=== PATIENT | female | born 1955 | race Caucasian/White ===

== ENCOUNTER → 2017-08-07 | Outpatient (CLI) | payer OTHER ==
--- NOTE | 2017-08-09 07:37 | MM ---
Reason for exam: screening (asymptomatic). Last mammogram was performed 1 year and 2 months ago. History: Patient is postmenopausal. Physical Findings: A clinical breast exam by your physician is recommended on an annual basis and results should be correlated with mammographic findings. MG Screening Mammo w CAD Bilateral CC and MLO view(s) were taken. Prior study comparison: June 13, 2016, bilateral MG screening mammo w CAD. June 09, 2015, bilateral MG screening mammo w CAD. There are scattered fibroglandular densities. Focal asymmetry in the left breast is stable. No significant changes when compared with prior studies. ASSESSMENT: Benign, BI-RAD 2 RECOMMENDATION: Routine screening mammogram of both breasts in 1 year.
== END ==
LOC: RADMAMWWP 07:42
PROVIDERS: ATTEND Family Medicine
DX: Z12.31 Encounter for screening mammogram for malignant neoplasm of breast (principal)

== ENCOUNTER → 2018-10-25 | Outpatient (CLI) | payer OTHER ==
--- NOTE | 2018-10-28 11:59 | MM ---
Reason for exam: screening (asymptomatic). Last mammogram was performed 1 year and 3 months ago. History: Patient is postmenopausal. Physical Findings: A clinical breast exam by your physician is recommended on an annual basis and results should be correlated with mammographic findings. MG Screening Mammo w CAD Bilateral CC and MLO view(s) were taken. Prior study comparison: August 07, 2017, bilateral MG screening mammo w CAD. June 13, 2016, bilateral MG screening mammo w CAD. The breast tissue is heterogeneously dense. This may lower the sensitivity of mammography. Benign calcifications in the left breast. No significant changes when compared with prior studies. ASSESSMENT: Benign, BI-RAD 2 RECOMMENDATION: Routine screening mammogram of both breasts in 1 year.
== END ==
LOC: RADMAMWWP 09:15
PROVIDERS: ATTEND Family Medicine
DX: Z12.31 Encounter for screening mammogram for malignant neoplasm of breast (principal)
CPT/HCPCS: 77067

== ENCOUNTER 2020-06-14 12:46 | Observation (INO) | payer MEDICARE ==
--- NOTE | 2020-06-14 13:17 | ED ---
Abdominal Pain HPI - General Source: patient Mode of arrival: wheelchair Limitations: no limitations <Sunita Enrique - Last Filed: 06/14/20 16:21> <Rowdy Bardales - Last Filed: 06/14/20 17:15> - General Chief Complaint: Abdominal Pain Stated Complaint: epigastric pain Time Seen by Provider: 06/14/20 13:02 - History of Present Illness Initial Comments: 65-year-old female presents today for chief complaint of vague epigastric pain ongoing for the past month worsening. Patient states that she recently was told she had worsening GERD and should epigastric pain. She states that now is progressively worsened and radiate towards her back. Patient denies fevers, admits to chills. Denies melena, or hematochezia currently. States a month ago prior to being on protonix she was experiencing dark stools but was also on pepto. patient denies vomiting chest pain or pressure, shortness of breath. She states that the pain the goes to the back is slight more left than right rather than midline. patient denies additional complaints. Upon arrival she appears well nontoxic in no acute distress. (Sunita Enrique) - Related Data Home Medications Medication Instructions Recorded Confirmed Acetaminophen Tab [Tylenol] 650 mg PO Q6H PRN 06/14/20 06/14/20 Acetaminophen/Diphenhydramine 2 tab PO HS 06/14/20 06/14/20 [Tylenol PM 500-25mg] Aspirin EC [Ecotrin Low Dose] 81 mg PO DAILY 06/14/20 06/14/20 Omeprazole 20 mg PO DAILY 06/14/20 06/14/20 Allergies Allergy/AdvReac Type Severity Reaction Status Date / Time codeine Allergy Itching Verified 06/14/20 16:09 Review of Systems ROS Other: All systems not noted in ROS Statement are negative. <Sunita Enrique - Last Filed: 06/14/20 16:21> ROS Other: All systems not noted in ROS Statement are negative. <Rowdy Bardales - Last Filed: 06/14/20 17:15> ROS Statement: Those systems with pertinent positive or pertinent negative responses have been documented in the HPI. Past Medical History Past Medical History: CVA/TIA, Osteoarthritis (OA) Additional Past Medical History / Comment(s): TIA History of Any Multi-Drug Resistant Organisms: None Reported Past Surgical History: Section Additional Past Surgical History / Comment(s): COLONOSCOPY, EGD, BRAIN SURGERY Past Anesthesia/Blood Transfusion Reactions: No Reported Reaction Past Psychological History: No Psychological Hx Reported Smoking Status: Current every day smoker Past Alcohol Use History: None Reported Past Drug Use History: None Reported - Past Family History Mother Family Medical History: No Reported History <Sunita Enrique - Last Filed: 06/14/20 16:21> General Exam Limitations: no limitations <Sunita Enrique - Last Filed: 06/14/20 16:21> - General Exam Comments Initial Comments: General: The patient is awake and alert, in no distress Eye: +3 mm pupils are equal, round and reactive to light, extra-ocular movements are intact. No nystagmus. There is normal conjunctiva bilaterally. No signs of icterus. Ears, nose, mouth and throat: There are moist mucous membranes and no oral lesions. Neck: The neck is supple, there is no tenderness or JVD. Cardiovascular: There is a regular rate and rhythm. No murmur, rub or gallop is appreciated. Respiratory: Lungs are clear to auscultation, respirations are non-labored, breath sounds are equal. No wheezes, stridor, rales, or rhonchi. Gastrointestinal: Soft, non-distended, epigastric abdominal tenderness to palpation-moderate, remaining abdomen nontender and is without masses or organomegaly noted. There is no rebound or guarding present. Musculoskeletal: Normal ROM, no tenderness. Strength 5/5. Sensation intact. Pulses equal bilaterally 2+. Neurological: A&O x 3. CN II-XII intact grossly, There are no obvious motor or sensory deficits. Coordination appears grossly intact. Speech is normal. Skin: Skin is warm and dry and no rashes or lesions are noted. Psychiatric: Cooperative, appropriate mood & affect, normal judgment. (Sunita Enrique) Course <JeffyRowdy - Last Filed: 06/14/20 17:15> Vital Signs 06/14/20 06/14/20 12:56 15:47 Temperature 97.8 F Pulse Rate 93 65 Respiratory 18 18 Rate Blood Pressure 115/71 97/66 O2 Sat by Pulse 100 96 Oximetry - Reevaluation(s) Reevaluation #1: 06/14/20 17:15 PA supervision: Patient presented with complaints of abdominal pain she was found have a pancreatic mass. She is agreed to stay. She'll be admitted with consultation. Case is discussed with Dr. Chung from EMS (Rowdy Bardales) Medical Decision Making - Lab Data Result diagrams: 06/14/20 13:33 06/14/20 13:33 <Sunita Enrique - Last Filed: 06/14/20 16:21> - Lab Data Result diagrams: 06/14/20 13:33 06/14/20 13:33 <Rowdy Bardales - Last Filed: 06/14/20 17:15> - Medical Decision Making 65yo female presenting today for cc of epigastric pain. CT reveals mass near pancreas with ductal compression. Patient laboratory studies stable aside from slightly increased lipase. patient otherwise appears well nontoxic. This concerned for pancreatic cancer patient at this time after discussing case with Dr. Jeffy Cleaning patient in the hospital for further arrangement of outpatient services and care. Patient agreeable to admission and care plan. (Sunita Enrique) - Lab Data Lab Results 06/14/20 06/14/20 06/14/20 Range/Units 13:33 13:33 13:33 WBC 7.3 (3.8-10.6) k/uL RBC 4.96 (3.80-5.40) m/uL Hgb 14.6 (11.4-16.0) gm/dL Hct 45.8 (34.0-46.0) % MCV 92.3 (80.0-100.0) fL MCH 29.4 (25.0-35.0) pg MCHC 31.9 (31.0-37.0) g/dL RDW 12.9 (11.5-15.5) % Plt Count 393 (150-450) k/uL Neutrophils % 66 % Lymphocytes % 24 % Monocytes % 4 % Eosinophils % 3 % Basophils % 1 % Neutrophils # 4.8 (1.3-7.7) k/uL Lymphocytes # 1.8 (1.0-4.8) k/uL Monocytes # 0.3 (0-1.0) k/uL Eosinophils # 0.2 (0-0.7) k/uL Basophils # 0.1 (0-0.2) k/uL Sodium 138 (137-145) mmol/L Potassium 4.5 (3.5-5.1) mmol/L Chloride 105 (98-107) mmol/L Carbon Dioxide 24 (22-30) mmol/L Anion Gap 9 mmol/L BUN 13 (7-17) mg/dL Creatinine 0.73 (0.52-1.04) mg/dL Est GFR (CKD-EPI)AfAm >90 (>60 ml/min/1.73 sqM) Est GFR (CKD-EPI)NonAf 86 (>60 ml/min/1.73 sqM) Glucose 96 (74-99) mg/dL Calcium 10.0 (8.4-10.2) mg/dL Total Bilirubin 0.5 (0.2-1.3) mg/dL AST 23 (14-36) U/L ALT 14 (4-34) U/L Alkaline Phosphatase 103 (38-126) U/L Troponin I <0.012 (0.000-0.034) ng/mL Total Protein 7.3 (6.3-8.2) g/dL Albumin 4.6 (3.5-5.0) g/dL Amylase 52 (30-110) U/L Lipase 318 H (23-300) U/L Urine Color Urine Appearance (Clear) Urine pH (5.0-8.0) Ur Specific [place] (1.001-1.035) Urine Protein (Negative) Urine Glucose (UA) (Negative) Urine Ketones (Negative) Urine Blood (Negative) Urine Nitrite (Negative) Urine Bilirubin (Negative) Urine Urobilinogen (<2.0) mg/dL Ur Leukocyte Esterase (Negative) 06/14/20 Range/Units 13:57 WBC (3.8-10.6) k/uL RBC (3.80-5.40) m/uL Hgb (11.4-16.0) gm/dL Hct (34.0-46.0) % MCV (80.0-100.0) fL MCH (25.0-35.0) pg MCHC (31.0-37.0) g/dL RDW (11.5-15.5) % Plt Count (150-450) k/uL Neutrophils % % Lymphocytes % % Monocytes % % Eosinophils % % Basophils % % Neutrophils # (1.3-7.7) k/uL Lymphocytes # (1.0-4.8) k/uL Monocytes # (0-1.0) k/uL Eosinophils # (0-0.7) k/uL Basophils # (0-0.2) k/uL Sodium (137-145) mmol/L Potassium (3.5-5.1) mmol/L Chloride (98-107) mmol/L Carbon Dioxide (22-30) mmol/L Anion Gap mmol/L BUN (7-17) mg/dL Creatinine (0.52-1.04) mg/dL Est GFR (CKD-EPI)AfAm (>60 ml/min/1.73 sqM) Est GFR (CKD-EPI)NonAf (>60 ml/min/1.73 sqM) Glucose (74-99) mg/dL Calcium (8.4-10.2) mg/dL Total Bilirubin (0.2-1.3) mg/dL AST (14-36) U/L ALT (4-34) U/L Alkaline Phosphatase (38-126) U/L Troponin I (0.000-0.034) ng/mL Total Protein (6.3-8.2) g/dL Albumin (3.5-5.0) g/dL Amylase (30-110) U/L Lipase (23-300) U/L Urine Color Yellow Urine Appearance Clear (Clear) Urine pH 6.0 (5.0-8.0) Ur Specific [place] 1.015 (1.001-1.035) Urine Protein Negative (Negative) Urine Glucose (UA) Negative (Negative) Urine Ketones Trace H (Negative) Urine Blood Negative (Negative) Urine Nitrite Negative (Negative) Urine Bilirubin Negative (Negative) Urine Urobilinogen <2.0 (<2.0) mg/dL Ur Leukocyte Esterase Negative (Negative) Disposition Is patient prescribed a controlled substance at d/c from ED?: No Time of Disposition: 16:21 Decision to Admit Reason: Admit from EC Decision Date: 06/14/20 Decision Time: 16:21 <Sunita Enrique - Last Filed: 06/14/20 16:21> <Rowdy Bardales - Last Filed: 06/14/20 17:15> Clinical Impression: Pancreatic mass, Epigastric pain Disposition: ADMITTED IP TO THIS HOSP Condition: Stable
[2020-06-14 13:56] LABS: Basophils # (A) 0.1 k/uL (0-0.2); Basophils % (A) 1 %; Eosinophils # (A) 0.2 k/uL (0-0.7); Eosinophils % (A) 3 %; HCT 45.8 % (34.0-46.0); HGB 14.6 gm/dL (11.4-16.0); Lymphocytes # (A) 1.8 k/uL (1.0-4.8); Lymphocytes % (A) 24 %; MCH 29.4 pg (25.0-35.0); MCHC 31.9 g/dL (31.0-37.0); MCV 92.3 fL (80.0-100.0); Mean Platelet Volume 7.5; Monocytes # (A) 0.3 k/uL (0-1.0); Monocytes % (A) 4 %; Neutrophils # (A) 4.8 k/uL (1.3-7.7); Neutrophils % (A) 66 %; Platelet Count 393 k/uL (150-450); RBC 4.96 m/uL (3.80-5.40); RDW 12.9 % (11.5-15.5); WBC 7.3 k/uL (3.8-10.6)
[2020-06-14 14:02] LABS: ALT 14 U/L (4-34); AST 23 U/L (14-36); African American GFR (CKD) >90 (>60 ml/min/1.73 sqM); Albumin 4.6 g/dL (3.5-5.0); Alkaline Phosphatase 103 U/L (38-126); Amylase 52 U/L (30-110); Anion Gap 9 mmol/L; Blood Urea Nitrogen 13 mg/dL (7-17); Carbon Dioxide 24 mmol/L (22-30); Chloride 105 mmol/L (98-107); Glucose 96 mg/dL (74-99); Non-African American GFR(CKD) 86 (>60 ml/min/1.73 sqM); Potassium 4.5 mmol/L (3.5-5.1); Sodium 138 mmol/L (137-145); Total Bilirubin 0.5 mg/dL (0.2-1.3); Total Protein 7.3 g/dL (6.3-8.2)
[2020-06-14 14:07] LABS: Appearance,Urine Clear (Clear); Bilirubin,Urine Negative (Negative); Blood,Urine Negative (Negative); Color,Urine Yellow; Glucose,Urine (UA) Negative (Negative); Ketones,Urine Trace (Negative); Leukocyte Esterase,Urine Negative (Negative); Nitrite,Urine Negative (Negative); Protein,Urine Negative (Negative); Specific Gravity,Urine 1.015 (1.001-1.035); Urobilinogen,Urine <2.0 mg/dL (<2.0)
--- NOTE | 2020-06-14 15:34 | CT ---
EXAMINATION TYPE: CT abdomen pelvis w con DATE OF EXAM: 06/14/2020 COMPARISON: NONE HISTORY: 65-year-old female Epigastric pain TECHNIQUE: Contiguous axial scanning of the abdomen and pelvis following administration of 100 ml Iso yanet 300 IV contrast. Delayed images through the kidneys and coronal/sagittal reconstructions perform ed. CT DLP: 613.9 mGycm Automated exposure control for dose reduction was used. FINDINGS: Heart normal size without pericardial effusion. Scattered LAD and RCA coronary artery calcifications are present. Lung bases clear without pleural effusion. Multiple hepatic cysts, largest in the left liver lobe measuring up to 7.2 cm. There is a hypervascular lesion within segment 4B of the left liver lobe measuring 1.8 cm. This equil ibrates on delayed kidney images. Flash filling hemangioma is suspected. Portal venous system is ibarra nt. Bile duct normal size measuring up to 5 mm with normal distal tapering. Gallbladder, adrenal glands, spleen appear within normal limits. Focal hypovascular area measuring 2.0 x 1.3 cm in the distal body of the pancreas with mild dilatatio n of the upstream main pancreatic duct up to 4 mm. Refer to axial image 27 and coronal image 23. There is mild edema and stranding about the proximal pancreatic body, for example, refer to coronal i mage 30. Portal venous system appears patent. The abnormal area abuts approximately 25% circumference of the p ortal venous confluence without any evidence for encasement. Bilateral renal cortical cysts measuring up to 1.6 cm. Symmetric uptake and excretion of contrast fro m the kidneys. No dilated small bowel, free fluid, or free air. No mesenteric or retroperitoneal lymphadenopathy see n. Scattered mild stool burden. Sigmoid diverticulosis. No pericolonic inflammatory change. Moderate atherosclerotic calcifications within the bilateral common iliac arteries. Bladder partially distended. Uterus is anteverted. Prominent bilateral periuterine varices and disten tion of the gonadal veins on both sides. No abnormal fluid collection in the pelvis or pelvic lymphad enopathy. Both ovaries are visualized. Bones: Hypertrophic facet arthropathy lower lumbar spine. Grade 1 anterolisthesis L5-S1. IMPRESSION: 1. ABNORMAL HYPOVASCULAR AREA AT THE DISTAL PANCREATIC BODY MEASURING 2.0 X 1.3 CM WITH MILD PROXIMAL PANCREATIC DUCTAL DILATATION. FURTHER WORKUP FOR PANCREATIC ADENOCARCINOMA ADVISED. THERE IS ABUTMEN T OF 25% OF THE CIRCUMFERENCE OF THE PORTAL VENOUS CONFLUENCE WITHOUT EVIDENCE FOR VASCULAR ENCASEMEN T OR INVASION. 2. SOME MILD EDEMA ABOUT THE PROXIMAL PANCREATIC BODY. SUPERIMPOSED MILD ACUTE INTERSTITIAL PANCREATI TIS NOT EXCLUDED. 3. A 1.8 CM HYPERVASCULAR LESION WITHIN SEGMENT IVB LEFT LIVER LOBE, SUSPECTED FLASH FILLING HEMANGIO MA. ATTENTION ON FOLLOW-UP. 4. MULTIPLE HEPATIC CYSTS, LARGEST MEASURING UP TO 7.2 CM IN THE LEFT LOBE. 5. SIGMOID DIVERTICULOSIS WITHOUT ACUTE DIVERTICULITIS. 6. BILATERAL PARAUTERINE VARICES AND DISTENDED GONADAL VEINS. FINDINGS ARE NONSPECIFIC BUT MAY BE SEE N WITH PELVIC CONGESTION SYNDROME.
[2020-06-14] MEDS ORDERED: NALOXONE 0.4 MG/ML 1 ML VIAL IV PRN (16:19)
[2020-06-14] MEDS ORDERED: SODIUM CHLORIDE 0.9% 1,000 ML IV ONE (16:19)
[2020-06-14] MEDS ORDERED: ALPRAZolam 0.5 MG TAB PO STA (16:19)
[2020-06-14] MEDS ORDERED: ACETAMINOPHEN TAB 325 MG TAB PO PRN (16:54)
[2020-06-14] MEDS ORDERED: diphenhydrAMINE 50 MG CAP PO SCH (21:00)
[2020-06-14] MEDS ORDERED: ACETAMINOPHEN TAB 500 MG TAB PO SCH (21:00)
[2020-06-14] MEDS: SODIUM CHLORIDE 0.9% 1,000 ML IV SCH (21:49)
[2020-06-15] MEDS: SODIUM CHLORIDE 0.9% 1,000 ML IV SCH ×2 (01:35→03:06)
[2020-06-15 02:09] LABS: Alpha Fetoprotein, Tumor Mkr 12.4 ng/mL (0.0-7.9)
[2020-06-15 02:38] LABS: Cancer Antigen 19-9 144.2 U/mL (0.0-34.9)
[2020-06-15 05:15] VITALS: TEMP 97.8
[2020-06-15] MEDS ORDERED: PANTOPRAZOLE 40 MG TABLET PO SCH (07:30)
[2020-06-15 11:28] LABS: African American GFR (CKD) >90 (>60 ml/min/1.73 sqM); Blood Urea Nitrogen 10 mg/dL (7-17); Non-African American GFR(CKD) >90 (>60 ml/min/1.73 sqM)
[2020-06-15 11:35] VITALS: BP 104/65; PULSE 63; RESP 17
--- NOTE | 2020-06-15 12:47 | P.DS ---
Providers Date of admission: 06/14/20 16:19 Attending physician: Elvis Underwood Consults: 06/14/20 16:19 Consult Physician Routine Consulting Provider: Manish Jackson Consult Reason/Comments: pancreatic mass Do you want consulting provider notified?: Yes, Notify in am Primary care physician: Gonzalez De León [facility] Course: As mentioned in HPI Patient Condition at Discharge: Stable Plan - Discharge Summary Discharge Rx Participant: No New Discharge Prescriptions: New ALPRAZolam [Xanax] 0.25 mg PO Q8HR PRN 7 Days #21 tab PRN Reason: Anxiety Sertraline [Zoloft] 50 mg PO DAILY #30 tab No Action Aspirin EC [Ecotrin Low Dose] 81 mg PO DAILY Acetaminophen/Diphenhydramine [Tylenol PM 500-25mg] 2 tab PO HS Acetaminophen Tab [Tylenol] 650 mg PO Q6H PRN PRN Reason: Pain Omeprazole 20 mg PO DAILY Discharge Medication List Acetaminophen Tab [Tylenol] 650 mg PO Q6H PRN 06/14/20 [History] Acetaminophen/Diphenhydramine [Tylenol PM 500-25mg] 2 tab PO HS 06/14/20 [History] Aspirin EC [Ecotrin Low Dose] 81 mg PO DAILY 06/14/20 [History] Omeprazole 20 mg PO DAILY 06/14/20 [History] ALPRAZolam [Xanax] 0.25 mg PO Q8HR PRN 7 Days #21 tab 06/15/20 [Rx] Sertraline [Zoloft] 50 mg PO DAILY #30 tab 06/15/20 [Rx] Follow up Appointment(s)/Referral(s): Manish Jackson MD [STAFF PHYSICIAN] - 2 Weeks (office to call you with appt. time and date) Gonzalez De León DO [Primary Care Provider] - 06/22/20 9:15 am Discharge Disposition: HOME SELF-CARE
--- NOTE | 2020-06-15 12:47 | P.HPIM ---
History of Present Illness 65-year-old the female came in with complaints of epigastric pain going to the back patient did use medications for her gases we'll reflux disease without any significant relief patient today evening use proton pump inhibitor as an o utpatient is no significant lives because of which patient was sent to the hospital patient had a CAT scan of the abdomen which showed a pancreatic mass which can explain the symptoms The symptoms patient denied any significant nausea vomiting. Patient denied any diarrhea. Shouldn't was quite a bit anxious today because of possible pancreatic cancer diagnosis and she lost her son about any ago and her daughter the year before that. Patient was evaluated by oncology. The 20 CAT scan of the she chest to rule out any metastatic disease and the oncology will arrange a follow-up with the gastro enterologist and general surgeon for the endoscopic ultrasound and biopsy. Patient will be discharged today after the CAT scan of the chest looking for metastatic disease and patient will be given prescription for Zoloft and Xanax for anxiety. Patient doesn't believe she will need any additional medications for her abdominal pain. He doesn't like to take narcotics. Patient will be given prescription for tramadol. Review of Systems REVIEW OF SYSTEMS: CONSTITUTIONAL: No fever, no malaise, no fatigue. HEENT: No recent visual problems or hearing problems. Denied any sore throat. CARDIOVASCULAR: No chest pain, orthopnea, PND, no palpitations, no syncope. PULMONARY: No shortness of breath, no cough, no hemoptysis. GASTROINTESTINAL: As mentioned in HPI NEUROLOGICAL: No headaches, no weakness, no numbness. HEMATOLOGICAL: Denies any bleeding or petechiae. GENITOURINARY: Denies any burning micturition, frequency, or urgency. MUSCULOSKELETAL/RHEUMATOLOGICAL: Denies any joint pain, swelling, or any muscle pain. ENDOCRINE: Denies any polyuria or polydipsia. The rest of the 14-point review of systems is negative. Past Medical History Past Medical History: CVA/TIA, Osteoarthritis (OA) Additional Past Medical History / Comment(s): TIA History of Any Multi-Drug Resistant Organisms: None Reported Past Surgical History: Section Additional Past Surgical History / Comment(s): COLONOSCOPY, EGD, BRAIN SURGERY Past Anesthesia/Blood Transfusion Reactions: No Reported Reaction Past Psychological History: No Psychological Hx Reported Smoking Status: Current every day smoker Past Alcohol Use History: None Reported Past Drug Use History: None Reported - Past Family History Mother Family Medical History: No Reported History Medications and Allergies Home Medications Medication Instructions Recorded Confirmed Type Acetaminophen Tab [Tylenol] 650 mg PO Q6H PRN 06/14/20 06/14/20 History Acetaminophen/Diphenhydramine 2 tab PO HS 06/14/20 06/14/20 History [Tylenol PM 500-25mg] Aspirin EC [Ecotrin Low Dose] 81 mg PO DAILY 06/14/20 06/14/20 History Omeprazole 20 mg PO DAILY 06/14/20 06/14/20 History ALPRAZolam [Xanax] 0.25 mg PO Q8HR PRN 7 Days #21 tab 06/15/20 Rx Sertraline [Zoloft] 50 mg PO DAILY #30 tab 06/15/20 Rx Allergies Allergy/AdvReac Type Severity Reaction Status Date / Time codeine Allergy Itching Verified 06/14/20 16:09 Physical Exam Vitals: Vital Signs Temp Pulse Pulse Resp BP BP Pulse Ox 06/15/20 11:34 97.8 F 63 17 104/65 97 06/15/20 08:00 63 17 06/15/20 05:14 97.8 F 65 16 102/64 96 06/15/20 00:30 66 06/14/20 19:00 97.5 F L 69 18 119/71 98 06/14/20 17:22 98.2 F 74 18 105/80 95 06/14/20 15:47 65 18 97/66 96 06/14/20 12:56 97.8 F 93 18 115/71 100 Intake and Output 06/14/20 06/15/20 06/15/20 22:59 06:59 14:59 Intake Total 820 Balance 820 Intake: Intake, IV Titration 520 Amount Sodium Chloride 0.9% 1, 520 000 ml @ 130 mls/hr IV . Q7H42M [facility] Rx#:[id number] Blood Product 300 Other: Voiding Method Toilet Toilet # Voids 1 2 # Bowel Movements 1 Weight 54.885 kg PHYSICAL EXAMINATION: GENERAL: The patient is alert and oriented x3, not in any acute distress. Thin built female HEENT: Pupils are round and equally reacting to light. EOMI. No scleral icterus. No conjunctival pallor. Normocephalic, atraumatic. No pharyngeal erythema. No thyromegaly. CARDIOVASCULAR: S1 and S2 present. No murmurs, rubs, or gallops. PULMONARY: Chest is clear to auscultation, no wheezing or crackles. ABDOMEN: Soft, nontender, nondistended, normoactive bowel sounds. No palpable organomegaly. MUSCULOSKELETAL: No joint swelling or deformity. EXTREMITIES: No cyanosis, clubbing, or pedal edema. NEUROLOGICAL: Gross neurological examination did not reveal any focal deficits. SKIN: No rashes. Results CBC & Chem 7: 06/14/20 13:33 06/15/20 11:02 Labs: Abnormal Lab Results - Last 24 Hours (Table) 06/14/20 06/14/20 06/14/20 Range/Units 13:33 13:33 13:57 Lipase 318 H (23-300) U/L Tumor Marker AFP 12.4 H (0.0-7.9) ng/mL CA 19-9 Antigen 144.2 H (0.0-34.9) U/mL Urine Ketones Trace H (Negative) Thrombosis Risk Factor Assmnt - Choose All That Apply Other Risk Factors: Yes Each Risk Factor Represents 2 Points: Age 61-74 years Thrombosis Risk Factor Assessment Total Risk Factor Score: 2 Thrombosis Risk Factor Assessment Level: Low Risk Assessment and Plan Plan: -Abdominal pain: Secondary to pancreatic mass further management as described mentioned above patient will need endoscopic ultrasound guided biopsy of the pancreatic mass. Follow-up will be arranged by oncology. CAT scan of the chest to rule out any metastatic disease to the lungs -Anxiety disorder -Depression Gastroesophageal reflux disease. Plan as mentioned above
--- NOTE | 2020-06-15 12:55 | P.CONS ---
History of Present Illness - Reason for Consult Consult date: 06/15/20 Concern for malignancy Requesting physician: Sunita Enrique - Chief Complaint abdominal pain - History of Present Illness Mrs. Rosa is a pleasant 65-year-old female who presented to emergency with abdominal pain that has become more persistent and worsening over the past month. She states its radiating to her back. Ct abdomen and Pelvis revealed hypovascular area in the distal pancreas body measuring 2x1.3cm. A CT chest has been ordered. Because of these findings medical oncology has been asked to further evaluate. Review of Systems A 14 point review of systems assessed and completed and all negative except HPI. Past Medical History Past Medical History: CVA/TIA, Osteoarthritis (OA) Additional Past Medical History / Comment(s): TIA History of Any Multi-Drug Resistant Organisms: None Reported Past Surgical History: Section Additional Past Surgical History / Comment(s): COLONOSCOPY, EGD, BRAIN SURGERY Past Anesthesia/Blood Transfusion Reactions: No Reported Reaction Past Psychological History: No Psychological Hx Reported Smoking Status: Current every day smoker Past Alcohol Use History: None Reported Past Drug Use History: None Reported - Past Family History Mother Family Medical History: No Reported History Medications and Allergies Home Medications Medication Instructions Recorded Confirmed Type Acetaminophen Tab [Tylenol] 650 mg PO Q6H PRN 06/14/20 06/14/20 History Acetaminophen/Diphenhydramine 2 tab PO HS 06/14/20 06/14/20 History [Tylenol PM 500-25mg] Aspirin EC [Ecotrin Low Dose] 81 mg PO DAILY 06/14/20 06/14/20 History Omeprazole 20 mg PO DAILY 06/14/20 06/14/20 History ALPRAZolam [Xanax] 0.25 mg PO Q8HR PRN 7 Days #21 tab 06/15/20 Rx Sertraline [Zoloft] 50 mg PO DAILY #30 tab 06/15/20 Rx Allergies Allergy/AdvReac Type Severity Reaction Status Date / Time codeine Allergy Itching Verified 06/14/20 16:09 Physical Exam Vitals: Vital Signs Temp Pulse Pulse Resp BP BP Pulse Ox 06/15/20 11:34 97.8 F 63 17 104/65 97 06/15/20 08:00 63 17 06/15/20 05:14 97.8 F 65 16 102/64 96 06/15/20 00:30 66 06/14/20 19:00 97.5 F L 69 18 119/71 98 06/14/20 17:22 98.2 F 74 18 105/80 95 06/14/20 15:47 65 18 97/66 96 06/14/20 12:56 97.8 F 93 18 115/71 100 Intake and Output 06/14/20 06/15/20 06/15/20 22:59 06:59 14:59 Intake Total 820 Balance 820 Intake: Intake, IV Titration 520 Amount Sodium Chloride 0.9% 1, 520 000 ml @ 130 mls/hr IV . Q7H42M [facility] Rx#:[id number] Blood Product 300 Other: Voiding Method Toilet Toilet # Voids 1 2 # Bowel Movements 1 Weight 54.885 kg - Constitutional General appearance: cooperative, no acute distress - EENT Eyes: EOMI, PERRLA ENT: NA/AT, normal oropharynx - Neck Neck: normal ROM - Respiratory Respiratory: bilateral: CTA - Cardiovascular Rhythm: regular Heart sounds: normal: S1, S2 - Gastrointestinal General gastrointestinal: distended, soft, tenderness - Integumentary Integumentary: pale - Neurologic Neurologic: CNII-XII intact - Musculoskeletal Musculoskeletal: gait normal, generalized weakness, strength equal bilaterally - Psychiatric Psychiatric: A&O x's 3, appropriate affect, intact judgment & insight Results CBC & Chem 7: 06/14/20 13:33 06/15/20 11:02 Labs: Abnormal Lab Results - Last 24 Hours (Table) 06/14/20 06/14/20 06/14/20 Range/Units 13:33 13:33 13:57 Lipase 318 H (23-300) U/L Tumor Marker AFP 12.4 H (0.0-7.9) ng/mL CA 19-9 Antigen 144.2 H (0.0-34.9) U/mL Urine Ketones Trace H (Negative) CT scan - abdomen: report reviewed CT scan - pelvis: report reviewed Assessment and Plan (1) Pancreatic mass Current Visit: Yes Status: Acute Code(s): K86.89 - OTHER SPECIFIED DISEASES OF PANCREAS SNOMED Code(s): 650327852 Plan: She will need to be evaluated for metastatic disease with CT chest, this has been ordered. If no evidence of metastatic disease she is to be referred downtown [facility] for whipple. She can then follow-up after with Dr. Jackson in 3-4 weeks for recommendations of adjuvant therapy given this is malignant. Thank you for the consultation Physician attest: I have completed the full history and physical ans agree with above dictation, dictated as a scribe.
--- NOTE | 2020-06-15 14:56 | CT ---
EXAMINATION TYPE: CT chest/w con DATE OF EXAM: 06/15/2020 COMPARISON: Prior CT 06/14/2020 HISTORY: Abnormal CT abdomen pelvis, epigastric pain CT DLP: 613.9 mGycm Automated exposure control for dose reduction was used. CONTRAST: CT scan of the chest pre- and postadministration of 100 cc Isovue-300 IV FINDINGS: LUNGS: The lungs are grossly clear, there is no concerning parenchymal mass or nodule identified. S ome minimal subsegmental basilar atelectatic change. Emphysematous changes are present within the rigoberto gs. There is no pleural effusion or pneumothorax seen. The tracheobronchial tree is patent. MEDIASTINUM: There are no greater than 1 cm hilar or mediastinal lymph nodes. No pericardial effusi on is seen. Mild coronary calcifications are present. AORTA: No additional significant abnormality is seen. OTHER: Upper abdomen is stable. IMPRESSION: Emphysema. Coronary artery disease. See dictated report abdomen pelvis CT 06/14/2020
== END 2020-06-15 16:23 | disposition home or self-care (01) ==
LOC: EC 12:46 → 5NMEDONC 16:19
PROVIDERS: ADMIT Hospitalist; ATTEND Hospitalist
DX: K86.89 Other specified diseases of pancreas (principal); R10.13 Epigastric pain; F41.9 Anxiety disorder, unspecified; F32.9 Major depressive disorder, single episode, unspecified; K21.9 Gastro-esophageal reflux disease without esophagitis; M19.90 Unspecified osteoarthritis, unspecified site; F17.200 Nicotine dependence, unspecified, uncomplicated; Z03.818 Encounter for observation for suspected exposure to other biological agents ruled out; Z79.899 Other long term (current) drug therapy; Z79.82 Long term (current) use of aspirin; Z88.5 Allergy status to narcotic agent; Z86.73 Personal history of transient ischemic attack (TIA), and cerebral infarction without residual deficits; Z98.890 Other specified postprocedural states
CPT/HCPCS: 96360; 99285; 36415; 93005; 80053; 82150; 82565; 83690; 84520; 84484; 85025; 81003; 82105; 86301; 71270; 74177; G0378 ×2; U0003; Q9967 ×2

== ENCOUNTER 2020-07-29 08:11 | Day surgery (SDC) | payer MEDICARE ==
[2020-07-27 08:57] VITALS: BMI 21.5
[~2020-07-29 08:11] MED LIST: DEXAMETHASONE SOD PHOSPHATE 10 MG/ML 1 ML VIAL IV ONE; HYDROmorphone 0.5 MG/0.5 ML SYRINGE IVP PRN; LACTATED RINGERS 1,000 ML IV SCH; ONDANSETRON 4 MG/2 ML VIAL IVP ONE; Pre Op ABX Message 1 EACH MISC MISCELLANE ONE
--- NOTE | 2020-07-29 08:48 | P.GSHP ---
History of Present Illness H&P Date: 07/29/20 CHIEF COMPLAINT: Pancreatic cancer HISTORY OF PRESENT ILLNESS: The patient is a 65-year-old female diagnosed with pancreatic cancer. He needs a Mediport placement for chemotherapy. PAST MEDICAL HISTORY: See list PAST SURGICAL HISTORY: See list CURRENT MEDICATIONS: See list. ALLERGIES: See list. SOCIAL HISTORY: See list. FAMILY HISTORY: Noncontributory. REVIEW OF ORGAN SYSTEMS: CONSTITUTIONAL: Has weight loss. PHYSICAL EXAMINATION: Vital signs: Stable GENERAL: Well developed and in no acute distress. Pleasant. HEENT: No sclera icterus. Extraocular movements grossly intact. Moist buccal mucosa. Head is atraumatic, normocephalic. Hears conversational speech. No nasal drainage. NECK: Supple without lymphadenopathy. No JV distention. CHEST: Non-labored respirations and equal bilateral excursions. CARDIOVASCULAR: Palpable 2+ radial pulses. ABDOMEN: Nontender. MUSCULOSKELETAL: No clubbing, cyanosis or edema. NEUROLOGIC: No focal or lateralizing signs. PSYCH: Appropriate affect. Alert and oriented to person, place and time. ASSESSMENT: 1. Pancreatic cancer 2. Need for chemotherapeutic access. PLAN: 1. Agree with Port-A-Cath placement. Past Medical History Past Medical History: Cancer, CVA/TIA, Osteoarthritis (OA) Additional Past Medical History / Comment(s): TIA, cyst on liver History of Any Multi-Drug Resistant Organisms: None Reported Past Surgical History: Section Additional Past Surgical History / Comment(s): COLONOSCOPY, EGD, BRAIN SURGERY for aneurysm (clipped), C/S x3 Past Anesthesia/Blood Transfusion Reactions: No Reported Reaction Smoking Status: Former smoker - Past Family History Mother Family Medical History: No Reported History Medications and Allergies Home Medications Medication Instructions Recorded Confirmed Type Acetaminophen Tab [Tylenol] 650 mg PO Q6H PRN 06/14/20 07/27/20 History Acetaminophen/Diphenhydramine 2 tab PO HS PRN 06/14/20 07/27/20 History [Tylenol PM 500-25mg] Aspirin EC [Ecotrin Low Dose] 81 mg PO DAILY 06/14/20 07/27/20 History Omeprazole 20 mg PO DAILY 06/14/20 07/27/20 History ALPRAZolam [Xanax] 0.25 mg PO Q8HR PRN 7 Days #21 tab 06/15/20 07/27/20 Rx traMADol HCL [Ultram] 50 mg PO Q6HR PRN 3 Days #12 tab 06/15/20 07/27/20 Rx Allergies Allergy/AdvReac Type Severity Reaction Status Date / Time codeine Allergy Itching Verified 07/27/20 08:40
[2020-07-29 09:11] VITALS: RESP 16; TEMP 97.3
[2020-07-29] MEDS ORDERED: LIDOCAINE 1% (10MG/ML) FOR IV START INTRADERMA ONE (09:11)
[2020-07-29] MEDS ORDERED: MIDAZOLAM 2 MG/2 ML VIAL ONE (09:24)
[2020-07-29] MEDS ORDERED: fentaNYL (PF) 50 MCG/ML 2 ML AMP ONE (09:24)
[2020-07-29] MEDS ORDERED: PROPOFOL 10 MG/ML 20 ML VIAL IV ONE (09:24)
[2020-07-29] MEDS ORDERED: BUPIVACAINE (PF) 0.25% 30 ML VIAL SQ ONE (10:02)
[2020-07-29] MEDS ORDERED: SODIUM CHLORIDE 0.9% 500 ML 500 ML with HEPARIN SODIUM,PORCINE 5,000 UNIT IV ONE ×2 (10:03)
[2020-07-29] MEDS ORDERED: HEPARIN SODIUM,PORCINE 100 UNIT/ML 5 ML VIAL IV ONE (10:03)
--- NOTE | 2020-07-29 11:03 | P.OP ---
Date of Procedure: 07/29/20 Description of Procedure: SURGEON: KARRIE SILVA MD ROLLER GOLD LEAF: None. PREOPERATIVE DIAGNOSES: 1. Pancreatic cancer 2. Need for chemotherapeutic access. POSTOPERATIVE DIAGNOSES: 1. Pancreatic cancer 2. Need for chemotherapeutic access. PROCEDURES PERFORMED: 1. Ultrasound guided central venous access of the right internal jugular venous vein. 2. Fluoroscopic guidance for central venous access right internal jugular vein 1 seconds. 3. Placement of right internal jugular power port 6 Kazakh by Bard. ANESTHESIA: IV sedation with local anesthetic. ESTIMATED BLOOD LOSS: 10 mL. SPECIMENS REMOVED: None. COMPLICATIONS: None. INDICATIONS: The patient is a 65-year-old female recently diagnosed with pancreatic cancer. She presents for chemotherapeutic access. Benefits and risks of surgical intervention were described including bleeding, infection, mechanical problems with her port. Informed consent was obtained. DESCRIPTION OR PROCEDURE: The patient was brought into the operating room, laid in supine position. After adequate IV sedation, the chest and right neck were prepped and draped in a standard sterile fashion including the shoulder with ChloraPrep. Timeout protocol was confirmed with the surgical team regarding the patient's name, procedure to be performed including preoperative medications for which she received Ancef 2 g IV piggyback. Bilateral SCDs were placed. An ultrasound was used to capture views of the right internal jugular vein including right carotid artery, which was patent and without thrombus along its course. The right IJ was then localized using anesthetic for the skin. A 16 Kazakh needle was used to access the IJ. The needle was advanced into the IJ with successful dark nonpulsatile venous blood. A J-wire was placed however with initial resistance. A repeat stick demonstrated arterial bleeding controlled with pressure. The needle was adjusted and the guidewire was passed. The skin was generally localized using anesthetic along the proposed port site as well as subcutaneous tract. Two fingerbreadths distal to the clavicle, on the lateral third, a transverse 2-cm incision was deepened into the skin after localizing the skin. A pocket was created for the port. The port on the back table was flushed with heparinized saline and then attached to the catheter tubing. An adapter was fastened to the port site over the tubing. The port easily had fit snug into the pocket. A subcutaneous tunneler was placed along the open end of the tubing and brought out through the separate stab incision. Fluoroscopic guidance confirmed no kinking along the tubing and the port site. Next, the J-wire was exchanged for a catheter sheath for which the tubing was cut to 20 cm and then advanced through the catheter sheath. The Peel-away sheath was then removed and the tubing was secured at the junction of the superior vena cava as well as the right atrium. Easy pullback of the syringe with return and aspiration was obtained of the port. The skin incision was closed using layers using 3-0 Vicryl for the subcu followed by 4-0 Monocryl in a running subcuticular fashion. At the stick site this was also reapproximated using 4-0 Monocryl. The skin was cleansed and Exofin was applied. The incisions were covered with Optifoam. A total of 20 mL of local anesthetic was placed. At the end of the procedure, needle, sponge, and instrument count was verified correct by surgical services manager. Heparin lock of 5 mL was placed. The patient was awoken and pain free and taken to the second stage postanesthesia care unit. The patient tolerated the procedure well. FINDINGS: 1. No thrombus encountered along the right carotid artery or right internal jugular vein. 2. Access of the right internal jugular vein under ultrasound guidance. 3. Fluoroscopy of 1 seconds. 4. Final fluoroscopic image confirmed no mechanical kink of the port site or at the junction at the skin puncture site. Plan - Discharge Summary Discharge Rx Participant: No New Discharge Prescriptions: New Acetaminophen Tab [Tylenol Tab] 500 mg PO Q6H PRN #30 tablet PRN Reason: Pain Continue Aspirin EC [Ecotrin Low Dose] 81 mg PO DAILY Acetaminophen/Diphenhydramine [Tylenol PM 500-25mg] 2 tab PO HS PRN PRN Reason: Insomnia Acetaminophen Tab [Tylenol] 650 mg PO Q6H PRN PRN Reason: Pain Omeprazole 20 mg PO DAILY ALPRAZolam [Xanax] 0.25 mg PO Q8HR PRN 7 Days #21 tab PRN Reason: Anxiety traMADol HCL [Ultram] 50 mg PO Q6HR PRN 3 Days #12 tab PRN Reason: Pain Discharge Medication List Acetaminophen Tab [Tylenol] 650 mg PO Q6H PRN 06/14/20 [History] Acetaminophen/Diphenhydramine [Tylenol PM 500-25mg] 2 tab PO HS PRN 06/14/20 [History] Aspirin EC [Ecotrin Low Dose] 81 mg PO DAILY 06/14/20 [History] Omeprazole 20 mg PO DAILY 06/14/20 [History] ALPRAZolam [Xanax] 0.25 mg PO Q8HR PRN 7 Days #21 tab 06/15/20 [Rx] traMADol HCL [Ultram] 50 mg PO Q6HR PRN 3 Days #12 tab 06/15/20 [Rx] Acetaminophen Tab [Tylenol Tab] 500 mg PO Q6H PRN #30 tablet 07/29/20 [Rx] Follow up Appointment(s)/Referral(s): Karrie Silva MD [STAFF PHYSICIAN] - As Needed Patient Instructions/Handouts: Implanted Venous Access Port (GEN), How to Care for Your Implanted Venous Access Port (DC) Activity/Diet/Wound Care/Special Instructions: Take Tylenol, Aleve or ibuprofen for pain as needed Remove dressing on Aug 02. May shower. No bathtub soaks for 2 weeks, Aug 12 No wide motions of the right arm to prevent dislodge of your port for 2 weeks, Aug 12 EXPECT BRUISING AND SLEEP WITH 2 TO 3 PILLOWS. BRUISING RESOLVES IN 2 TO 3 WEEKS. Discharge Disposition: HOME SELF-CARE
[2020-07-29 11:23] VITALS: BP 108/63; PULSE 57
--- NOTE | 2020-07-29 11:40 | FL ---
Fluoroscopy HISTORY: Central venous catheter placement 1 seconds fluoroscopy time supplied to the referring clinician. 1 intraoperative C-arm images docume nt the procedure. See dictated report from general surgery.
--- NOTE | 2020-07-29 11:47 | XR ---
EXAMINATION TYPE: XR chest 1V confirm line [facility] DATE OF EXAM: 07/29/2020 COMPARISON: 05/16/2009 HISTORY: 65-year-old female status post port placement TECHNIQUE: Single frontal view of the chest is obtained. FINDINGS: Right anterior chest wall injection port. Catheter tip at the upper to mid SVC level. Heart upper ferraro its of normal in size. Aorta and pulmonary vasculature within normal limits. Hyperinflation. Some str kenn atelectasis in the lower lungs. No consolidation or pleural effusion. IMPRESSION: 1. Right anterior chest wall injection port. Catheter tip at the upper to mid SVC. 2. Underlying COPD. No acute process seen.
== END 2020-07-29 12:02 | disposition home or self-care (01) ==
LOC: OR 08:11
PROVIDERS: ATTEND Surgery Plastic and Reconstructive Surgery
DX: C25.9 Malignant neoplasm of pancreas, unspecified (principal); M19.90 Unspecified osteoarthritis, unspecified site; F41.9 Anxiety disorder, unspecified; K21.9 Gastro-esophageal reflux disease without esophagitis; Z88.5 Allergy status to narcotic agent; Z79.82 Long term (current) use of aspirin; Z79.891 Long term (current) use of opiate analgesic; Z79.899 Other long term (current) drug therapy; Z98.890 Other specified postprocedural states; Z87.891 Personal history of nicotine dependence; Z86.73 Personal history of transient ischemic attack (TIA), and cerebral infarction without residual deficits
CPT/HCPCS: 77001; 36561; C1788; J2250; J1644; J1642; J1100; J0690; J2405; J3010; J2704

== ENCOUNTER 2020-09-07 13:55 | Emergency (ER) | payer MEDICARE ==
[2020-09-07 14:00] VITALS: RESP 18; TEMP 97.9
--- NOTE | 2020-09-07 14:35 | ED ---
General Adult HPI - General Chief complaint: Neuro Symptoms/Deficit Stated complaint: med reaction Time Seen by Provider: 09/07/20 14:21 Source: patient, RN notes reviewed Mode of arrival: wheelchair Limitations: no limitations - History of Present Illness Initial comments: 65 year-old female patient with history of TIA/CVA, pancreatic cancer currently receiving chemotherapy presents to the emergency department today for evaluation after having an episode of speech difficulty and leg weakness. Patient states she was receiving her infusion and had a reaction to the chemotherapy this morning which included throat tightness and mouth dryness. She did receive medication at that time and was completing her infusion. States that about an hour ago she had to go to the bathroom when she stood up both legs were numb and tingling and felt weak. She states both sides felt exactly the same. She denies any symptoms in her arms. She states that she was also having some slurred speech which she attributes to dry mouth from receiving benadryl and her earlier reaction. Patient states that she sat for a few more minutes and all symptoms resolved. She states that she feels fine, but the oncologist wanted her to come to the ED for evaluation due to history of CVA. Patient denies any recent rash, fever, chills, cough, shortness of breath, chest pain, abdominal pain, nausea, vomiting, diarrhea, constipation, back pain, dizziness, hematuria, dysuria, urinary urgency, urinary frequency, headache, visual changes, or any other complaints. - Related Data Home Medications Medication Instructions Recorded Confirmed Acetaminophen/Diphenhydramine 2 tab PO HS PRN 06/14/20 08/27/20 [Tylenol PM 500-25mg] Omeprazole 20 mg PO DAILY 06/14/20 08/27/20 OLANZapine [OLANZapine Odt] 5 mg PO HS 08/25/20 08/27/20 Ondansetron [Zofran] 4 mg PO Q4HR PRN 08/25/20 08/27/20 Previous Rx's Medication Instructions Recorded ALPRAZolam [Xanax] 0.25 mg PO Q8HR PRN 7 Days #21 tab 06/15/20 traMADol HCL [Ultram] 50 mg PO Q6HR PRN 3 Days #12 tab 06/15/20 Acetaminophen Tab [Tylenol Tab] 500 mg PO Q6H PRN #30 tablet 07/29/20 Allergies Allergy/AdvReac Type Severity Reaction Status Date / Time codeine Allergy Itching Verified 09/07/20 13:55 Review of Systems ROS Statement: Those systems with pertinent positive or pertinent negative responses have been documented in the HPI. ROS Other: All systems not noted in ROS Statement are negative. Past Medical History Past Medical History: Cancer, CVA/TIA, Osteoarthritis (OA) Additional Past Medical History / Comment(s): TIA, cyst on liver, pancreatic History of Any Multi-Drug Resistant Organisms: None Reported Past Surgical History: Section Additional Past Surgical History / Comment(s): COLONOSCOPY, EGD, BRAIN SURGERY for aneurysm (clipped), C/S x3 Past Anesthesia/Blood Transfusion Reactions: No Reported Reaction Past Psychological History: No Psychological Hx Reported Smoking Status: Former smoker Past Alcohol Use History: None Reported Past Drug Use History: Marijuana - Past Family History Mother Family Medical History: No Reported History General Exam Limitations: no limitations General appearance: alert, in no apparent distress, other (This is a well- developed, well-nourished adult female patient in no acute distress. Vital signs upon presentation are temperature 97.9F, pulse 80, respirations 18, blood pressure 115/74, pulse ox 96% on room air.) Eye exam: Present: normal appearance, PERRL, EOMI. Absent: scleral icterus, conjunctival injection, nystagmus, periorbital swelling ENT exam: Present: normal exam, normal oropharynx, mucous membranes moist Respiratory exam: Present: normal lung sounds bilaterally. Absent: respiratory distress, wheezes, rales, rhonchi, stridor Cardiovascular Exam: Present: regular rate, normal rhythm, normal heart sounds. Absent: systolic murmur, diastolic murmur, rubs, gallop, clicks GI/Abdominal exam: Present: soft, normal bowel sounds. Absent: distended, tenderness, guarding, rebound, rigid Neurological exam: Present: alert, oriented X3, CN II-XII intact Expanded Speech: Present: fluid speech Cranial nerves: EOM's Intact: Normal, Tongue Deviation: Normal, Nystagmus: Nor mal Upper motor neuron: Pronator Drift: Normal Motor strength exam: RUE: 5, LUE: 5, RLE: 5, LLE: 5 Eye Response: (4) open spontaneously Motor Response: (6) obeys commands Verbal Response: (5) oriented Selena Total: 15 Psychiatric exam: Present: normal affect, normal mood Skin exam: Present: warm, dry, intact, normal color. Absent: rash Course Vital Signs 09/07/20 13:56 Temperature 97.9 F Pulse Rate 80 Respiratory 18 Rate Blood Pressure 115/74 O2 Sat by Pulse 96 Oximetry Medical Decision Making - Medical Decision Making 65 year-old female patient currently being treated for pancreatic cancer with chemotherapy presents to the emergency department today for evaluation after having an episode of leg weakness and numbness as well as slurred speech. Patient does report having a reaction to the chemotherapy with treat she received Decadron and Benadryl. States the symptoms only lasted for a few minutes and then resolved. States that she feels completely normal at this time and is eager to be discharged. Physical examination is unremarkable. Her NIH score is 0 at this time. She has no focal neuro deficits. Patient reports that all symptoms today were bilateral and included her legs only she had no arm symptoms. States that she her mouth was very dry after receiving chemotherapy, Benadryl, and steroids. We did discuss risks of stroke and metastatic brain mets given her history. She verbalizes understanding of these risks and is comfortable being discharged at this time without any further testing. We did discuss return parameters in great detail, the patient assures me that she will return if her symptoms return. Disposition Clinical Impression: Medication reaction, Leg weakness Disposition: HOME SELF-CARE Condition: Good Instructions (If sedation given, give patient instructions): Weakness (ED), General Allergic Reaction (ED) Additional Instructions: Follow-up with your primary care physician for recheck as soon as possible. Return to the emergency department immediately if you have any symptoms of weakness, numbness, tingling, or difficulty with speech. Return to the emergency department for any other new, worsening, or concerning symptoms. Is patient prescribed a controlled substance at d/c from ED?: No Referrals: Gonzalez De León DO [Primary Care Provider] - 1-2 days Time of Disposition: 14:35
[2020-09-07 15:05] VITALS: BP 107/66; PULSE 81
== END 2020-09-07 15:05 | disposition home or self-care (01) ==
LOC: EC 13:55
DX: R47.81 Slurred speech (principal); T45.1X5A Adverse effect of antineoplastic and immunosuppressive drugs, initial encounter; R53.1 Weakness; R20.0 Anesthesia of skin; R20.2 Paresthesia of skin; R29.700 NIHSS score 0; M19.90 Unspecified osteoarthritis, unspecified site; Z79.899 Other long term (current) drug therapy; Z86.73 Personal history of transient ischemic attack (TIA), and cerebral infarction without residual deficits; Z87.891 Personal history of nicotine dependence; Z85.07 Personal history of malignant neoplasm of pancreas; Z88.5 Allergy status to narcotic agent; Z92.21 Personal history of antineoplastic chemotherapy
CPT/HCPCS: 96374; 99284; J1642

== ENCOUNTER 2020-10-03 08:39 | Emergency (ER) | payer MEDICARE ==
[2020-10-03 08:43] VITALS: TEMP 98.3
[2020-10-03] MEDS ORDERED: ONDANSETRON 4 MG/2 ML VIAL IVP STA (08:54)
[2020-10-03] MEDS ORDERED: SODIUM CHLORIDE 0.9% 1,000 ML IV STA (08:54)
[2020-10-03] MEDS ORDERED: SODIUM CHLORIDE 0.9% 2,000 ML IV STA (08:54)
--- NOTE | 2020-10-03 08:57 | ED ---
Nausea/Vomiting/Diarrhea HPI - General Chief complaint: Nausea/Vomiting/Diarrhea Stated complaint: Unable to eat/drink Time Seen by Provider: 10/03/20 08:44 Source: patient, family, RN notes reviewed Mode of arrival: wheelchair Limitations: no limitations - History of Present Illness Initial comments: This is a 65-year-old female with a history of pain graded cancer who just had chemotherapy IVs ago states since that that he's had persistent nausea vomiting some diarrhea very little oral intake. She feels weak and very dehydrated. She does have some minimal abdominal pain with this also. She's had this happen before where she has been dehydrated and needed IV hydration. She denies any overt fevers chills sweats cough or phlegm production no other MD complaint: nausea, vomiting, diarrhea - Related Data Home Medications Medication Instructions Recorded Confirmed Acetaminophen/Diphenhydramine 2 tab PO HS PRN 06/14/20 09/09/20 [Tylenol PM 500-25mg] Omeprazole 20 mg PO DAILY 06/14/20 09/09/20 OLANZapine [OLANZapine Odt] 5 mg PO HS 08/25/20 09/09/20 Ondansetron [Zofran] 4 mg PO Q4HR PRN 08/25/20 09/09/20 Previous Rx's Medication Instructions Recorded ALPRAZolam [Xanax] 0.25 mg PO Q8HR PRN 7 Days #21 tab 06/15/20 traMADol HCL [Ultram] 50 mg PO Q6HR PRN 3 Days #12 tab 06/15/20 Acetaminophen Tab [Tylenol Tab] 500 mg PO Q6H PRN #30 tablet 07/29/20 Scopolamine [Scopolamine 1 MG/72 1 patch TRANSDERM Q72H #4 patch 10/03/20 HR patch] Allergies Allergy/AdvReac Type Severity Reaction Status Date / Time codeine Allergy Itching Verified 10/03/20 08:43 Review of Systems ROS Statement: Those systems with pertinent positive or pertinent negative responses have been documented in the HPI. ROS Other: All systems not noted in ROS Statement are negative. Past Medical History Past Medical History: Cancer Additional Past Medical History / Comment(s): TIA, cyst on liver, pancreatic cancer History of Any Multi-Drug Resistant Organisms: None Reported Past Surgical History: Section Additional Past Surgical History / Comment(s): COLONOSCOPY, EGD, BRAIN SURGERY for aneurysm (clipped), C/S x3 Past Anesthesia/Blood Transfusion Reactions: No Reported Reaction Past Psychological History: No Psychological Hx Reported Smoking Status: Former smoker Past Alcohol Use History: None Reported Past Drug Use History: None Reported - Past Family History Mother Family Medical History: No Reported History General Exam - General Exam Comments Initial Comments: This is a well-developed asthenic appearing female who is awake alert oriented 3 Limitations: no limitations General appearance: alert, anxious, in distress Head exam: Present: atraumatic, normocephalic, normal inspection Eye exam: Present: normal appearance, PERRL, EOMI. Absent: scleral icterus, conjunctival injection, periorbital swelling ENT exam: Present: mucous membranes dry Neck exam: Present: normal inspection. Absent: tenderness, meningismus, lymphadenopathy Respiratory exam: Present: normal lung sounds bilaterally. Absent: respiratory distress, wheezes, rales, rhonchi, stridor Cardiovascular Exam: Present: regular rate, normal rhythm, normal heart sounds. Absent: systolic murmur, diastolic murmur, rubs, gallop, clicks GI/Abdominal exam: Present: soft, normal bowel sounds. Absent: distended, tenderness, guarding, rebound, rigid Extremities exam: Present: normal inspection, full ROM, normal capillary refill. Absent: tenderness, pedal edema, joint swelling, calf tenderness Back exam: Present: normal inspection Neurological exam: Present: alert, oriented X3, CN II-XII intact Psychiatric exam: Present: normal affect, normal mood Skin exam: Present: warm, dry, intact, normal color. Absent: rash Course Vital Signs 10/03/20 10/03/20 08:41 10:43 Temperature 98.3 F Pulse Rate 90 90 Respiratory 18 19 Rate Blood Pressure 97/72 108/70 O2 Sat by Pulse 95 98 Oximetry - Reevaluation(s) Reevaluation #1: 10/03/20 10:37 Reevaluation patient finds that she is still very nauseated. Further medication will be tried. Medical Decision Making - Medical Decision Making After several medications patient is feeling much improved able sit up and move without any dizziness nausea. She would like to go home she'll be discharged with a prescription for scopolamine patches she is to keep follow-ups as planned and return when necessary - Lab Data Result diagrams: 10/03/20 09:16 10/03/20 09:16 Lab Results 10/03/20 10/03/20 10/03/20 Range/Units 09:16 09:16 09:16 WBC 16.0 H (3.8-10.6) k/uL RBC 4.33 (3.80-5.40) m/uL Hgb 12.7 (11.4-16.0) gm/dL Hct 40.0 (34.0-46.0) % MCV 92.3 (80.0-100.0) fL MCH 29.3 (25.0-35.0) pg MCHC 31.7 (31.0-37.0) g/dL RDW 14.4 (11.5-15.5) % Plt Count 330 (150-450) k/uL Neutrophils % 95 % Lymphocytes % 3 % Monocytes % 1 % Eosinophils % 1 % Basophils % 0 % Neutrophils # 15.2 H (1.3-7.7) k/uL Lymphocytes # 0.4 L (1.0-4.8) k/uL Monocytes # 0.1 (0-1.0) k/uL Eosinophils # 0.2 (0-0.7) k/uL Basophils # 0.0 (0-0.2) k/uL Sodium 131 L (137-145) mmol/L Potassium 4.3 (3.5-5.1) mmol/L Chloride 97 L (98-107) mmol/L Carbon Dioxide 21 L (22-30) mmol/L Anion Gap 13 mmol/L BUN 15 (7-17) mg/dL Creatinine 0.71 (0.52-1.04) mg/dL Est GFR (CKD-EPI)AfAm >90 (>60 ml/min/1.73 sqM) Est GFR (CKD-EPI)NonAf 89 (>60 ml/min/1.73 sqM) Glucose 117 H (74-99) mg/dL Calcium 8.9 (8.4-10.2) mg/dL Magnesium 1.8 (1.6-2.3) mg/dL Total Bilirubin 0.6 (0.2-1.3) mg/dL AST 33 (14-36) U/L ALT 18 (4-34) U/L Alkaline Phosphatase 143 H (38-126) U/L Creatine Kinase 29 L (30-135) U/L Troponin I <0.012 (0.000-0.034) ng/mL Total Protein 7.2 (6.3-8.2) g/dL Albumin 4.1 (3.5-5.0) g/dL Lipase 79 (23-300) U/L Disposition Clinical Impression: Intractable nausea and vomiting, Dehydration, History of pancreatic cancer, Diarrhea Disposition: HOME SELF-CARE Condition: Good Instructions (If sedation given, give patient instructions): Acute Nausea and Vomiting (ED), Acute Diarrhea (ED), Dehydration (ED) Prescriptions: Scopolamine [Scopolamine 1 MG/72 HR patch] 1 patch TRANSDERM Q72H #4 patch Is patient prescribed a controlled substance at d/c from ED?: No Referrals: Gonzalez De León DO [Primary Care Provider] - 1-2 days
[2020-10-03 09:27] LABS: Basophils % (A) 0 %; Eosinophils # (A) 0.2 k/uL (0-0.7); Eosinophils % (A) 1 %; HGB 12.7 gm/dL (11.4-16.0); Lymphocytes # (A) 0.4 k/uL (1.0-4.8); Lymphocytes % (A) 3 %; MCH 29.3 pg (25.0-35.0); MCHC 31.7 g/dL (31.0-37.0); MCV 92.3 fL (80.0-100.0); Mean Platelet Volume 7.1; Monocytes # (A) 0.1 k/uL (0-1.0); Monocytes % (A) 1 %; Neutrophils # (A) 15.2 k/uL (1.3-7.7); Neutrophils % (A) 95 %; Platelet Count 330 k/uL (150-450); RBC 4.33 m/uL (3.80-5.40); RDW 14.4 % (11.5-15.5)
--- NOTE | 2020-10-03 09:32 | XR ---
EXAMINATION TYPE: XR KUB DATE OF EXAM: 10/03/2020 COMPARISON: NONE HISTORY: Pain TECHNIQUE: Single supine KUB image of the abdomen is obtained FINDINGS: Small bowel demonstrates no evidence for dilatation or air fluid levels. Gas and fecal material is seen in non-distended colon. No convincing evidence for pneumoperitoneum. No unusual calcifications. The lung bases are clear. The osseous structures are intact. IMPRESSION: 1. Overall nonobstructive bowel gas pattern.
[2020-10-03 09:55] LABS: ALT 18 U/L (4-34); AST 33 U/L (14-36); African American GFR (CKD) >90 (>60 ml/min/1.73 sqM); Albumin 4.1 g/dL (3.5-5.0); Alkaline Phosphatase 143 U/L (38-126); Anion Gap 13 mmol/L; Blood Urea Nitrogen 15 mg/dL (7-17); Calcium 8.9 mg/dL (8.4-10.2); Carbon Dioxide 21 mmol/L (22-30); Chloride 97 mmol/L (98-107); Creatine Kinase 29 U/L (30-135); Glucose 117 mg/dL (74-99); Lipase 79 U/L (23-300); Magnesium 1.8 mg/dL (1.6-2.3); Non-African American GFR(CKD) 89 (>60 ml/min/1.73 sqM); Potassium 4.3 mmol/L (3.5-5.1); Sodium 131 mmol/L (137-145); Total Bilirubin 0.6 mg/dL (0.2-1.3); Total Protein 7.2 g/dL (6.3-8.2)
[2020-10-03] MEDS ORDERED: PROCHLORPERAZINE INJ 10 MG/2 ML VIAL IVP STA (10:36)
[2020-10-03] MEDS ORDERED: DEXAMETHASONE SOD PHOSPHATE 4 MG/ML 1 ML VIAL IV STA (10:36)
[2020-10-03] MEDS ORDERED: HALOPERIDOL LACTATE 5 MG/ML 1 ML VIAL IVP STA (12:12)
[2020-10-03] MEDS ORDERED: SCOPOLAMINE 1.5MG/72HR PATCH TRANSDERM STA (12:13)
[2020-10-03 14:30] VITALS: BP 97/78; PULSE 77; RESP 17
== END 2020-10-03 14:30 | disposition home or self-care (01) ==
LOC: EC 08:39
DX: E86.0 Dehydration (principal); R11.2 Nausea with vomiting, unspecified; R19.7 Diarrhea, unspecified; Z79.899 Other long term (current) drug therapy; Z85.07 Personal history of malignant neoplasm of pancreas; Z87.891 Personal history of nicotine dependence; Z88.5 Allergy status to narcotic agent; Z86.73 Personal history of transient ischemic attack (TIA), and cerebral infarction without residual deficits; Z87.19 Personal history of other diseases of the digestive system; Z98.890 Other specified postprocedural states
CPT/HCPCS: 36415; 80053; 82550; 83690; 83735; 84484; 85025; 74018; 99284; 96374; 96375 ×3; 96361 ×5; J0780; J1630; J1100; J2405